=== PATIENT | female | born 1955 | race Caucasian/White ===

== ENCOUNTER 2022-05-14 08:08 | Day surgery (SDC) | payer OTHER ==
[2022-05-10 15:00] VITALS: BMI 37.0
[2022-05-14 08:24] VITALS: TEMP 97.8
[2022-05-14 10:07] VITALS: PULSE 72; RESP 16
[2022-05-14 10:14] VITALS: BP 103/47
== END 2022-05-14 10:30 | disposition home or self-care (01) ==
LOC: FASU-ENDO 08:08
PROVIDERS: ATTEND Internal Medicine Gastroenterology
PROC: 0DJD8ZZ Inspection of Lower Intestinal Tract, Via Natural or Artificial Opening Endoscopic (ICD-10-PCS; principal; 2022-05-14 09:28)
DX: Z12.11 Encounter for screening for malignant neoplasm of colon (principal); K57.30 Diverticulosis of large intestine without perforation or abscess without bleeding